=== PATIENT | female | born 1950 | race Caucasian/White ===

== ENCOUNTER → 2020-06-23 | Outpatient (CLI) | payer MEDICARE ==
[~2020-06-23] MED LIST: CALCIUM 600 +1 EACH PO; CELECOXIB200 MG PO; ELIQUIS2.5 MG PO; ENDOCET 7.5-321 EACH PO; HYDROCHLOROTHIA25 MG PO; LOSARTAN-HCTZ1 EAC1 PO; LOSARTAN-HCTZ1 EAC2 PO; NAPROSYN500 MG PO; NORCO 5-325 TA1 EACH PO; NORVASC2.5 MG PO; NORVASC5 MG PO; PEPCID40 MG PO; PROTONIX40 MG PO; REQUIP0.25 MG PO; SINGULAIR10 MG PO; SM CALCIUM PO; SYMBICORT 16010.2 GM INH; TAGAMET HB200 MG PO
== END ==
LOC: CT 10:05
DX: R09.89 Other specified symptoms and signs involving the circulatory and respiratory systems (principal)
CPT/HCPCS: 36415; 70491; 82565; Q9967

== ENCOUNTER → 2020-11-06 | Outpatient (CLI) | payer MEDICARE ==
[2020-11-06 09:52] LABS: HEMOGLOBIN 13.4 gm/dl (12.3-15.3); RED BLOOD COUNT 4.23 M/UL (4.00-5.10); WHITE BLOOD COUNT 13.4 K/UL (4.5-11.0)
== END ==
LOC: EDSTATUS 09:00 → OPSV2 09:00
PROVIDERS: Orthopaedic Surgery
DX: Z01.812 Encounter for preprocedural laboratory examination (principal); M16.11 Unilateral primary osteoarthritis, right hip; I10 Essential (primary) hypertension
CPT/HCPCS: 36415; 80048; 85027; 87081; 87086

== ENCOUNTER → 2020-11-19 | Outpatient (CLI) | payer MEDICARE | LOC: LAB 11:44 | PROVIDERS: Orthopaedic Surgery | DX: Z01.812 Encounter for preprocedural laboratory examination (principal); I10 Essential (primary) hypertension; M16.11 Unilateral primary osteoarthritis, right hip | CPT/HCPCS: 36415; 80048; 86850; 86900; 86901 ==

== ENCOUNTER 2020-11-20 06:45 | Day surgery (SDC) | payer MEDICARE ==
[~2020-11-20] VITALS: Ht 157.5 cm; Wt 81.6 kg
[~2020-11-20 06:45] MED LIST changes: -ELIQUIS2.5 MG PO; -ENDOCET 7.5-321 EACH PO
[2020-11-20] MEDS ORDERED: ENDOCET 7.5-321 EACH PO (08:59)
[2020-11-20] MEDS ORDERED: ELIQUIS2.5 MG PO (08:59)
[2020-11-21 05:55] LABS: RED BLOOD COUNT 3.28 M/UL (4.00-5.10); WHITE BLOOD COUNT 26.1 K/UL (4.5-11.0)
== END 2020-11-21 16:41 | disposition home or self-care (01) ==
LOC: OR 06:45 → EDSTATUS 08:15 → M/S 12:15 → OR 11-21 16:41
PROVIDERS: Orthopaedic Surgery
DX: M16.11 Unilateral primary osteoarthritis, right hip (principal); G89.18 Other acute postprocedural pain; I10 Essential (primary) hypertension; J44.9 Chronic obstructive pulmonary disease, unspecified; F17.210 Nicotine dependence, cigarettes, uncomplicated; K21.9 Gastro-esophageal reflux disease without esophagitis; G25.81 Restless legs syndrome; Z88.0 Allergy status to penicillin; Z88.2 Allergy status to sulfonamides; Z88.8 Allergy status to other drugs, medicaments and biological substances; Z79.899 Other long term (current) drug therapy
CPT/HCPCS: 36415; 73501; 73502; 76000; 80048; 85027; 94664; 97110-GP-CQ; 97116-GP-CQ; 97161; 97166; 97535; C1776; J0171; J0690; J1100; J1885; J2250; J2270; J2370; J2405; J2704; J2795; J3010; J3370; J7050; J7120